=== PATIENT | female | born 1950 | race Caucasian/White ===

== ENCOUNTER → 2016-09-10 | Outpatient (CLI) | payer MEDICARE ==
--- NOTE | 2016-09-10 23:23 | CONS ---
DATE OF CONSULTATION: This is a 66-year-old female patient diagnosed having obstructive sleep apnea back in 2010 under the care of Dr. Packer. Back then the patient was found to have mild ARMIDA with an AHI of 16 and she was given a CPAP machine which is currently set at a pressure of 8 cm of water. The patient had been very compliant on her CPAP machine. She has been using it until the beginning of this year when she quit as the patient had a sinus surgery where a sinus cyst was removed from the right maxillary sinus. Since then she has not seen major difference while being on or off the treatment and she is wondering whether there is a need for ongoing treatment regarding her obstructive sleep apnea. Note that she has not gained any weight and she is still weighing 170 pounds. She still snores according to her . She denies having to stop breathing. No insomnia. No choking, no nocturia. No gasping for air. No restless in the lower extremities. No sleeptalking. No grinding of the teeth. No anxiety or panic attacks. No heartburn. She is a survivor of previous bacterial meningitis back in 2007. She goes to bed around midnight, wakes up between 8 and 10:00 a.m. in the morning takes him a few minutes to fall sleep. No major hypersomnia or sleepiness during the day. Union score is at 2. PAST MEDICAL HISTORY: ARMIDA, Bronchial asthma, meningitis, bacteria, hypertension, GERD and vertigo. Past surgical history includes hysterectomy, appendectomy, cholecystectomy, sinus surgery with resection of sinus polyp and surgery on the septal. SOCIAL HISTORY: The patient is a nonsmoker. No history of alcohol. No history of IV drugs. DRUG ALLERGIES ARE TO CODEINE. The patient has seasonal allergies. Outpatient medication list includes: 1. Prolia injection twice a year. 2. Restasis eye drops. 3. Preservision, 4. Caltrate. 5. Folic acid. 6. B complex. 7. ( ). 8. Hydrochlorothiazide. 9. Slow Iron. 10. Singulair. 11. Aspirin. 12. Meclizine. FAMILY HISTORY: Negative for sleep apnea. REVIEW OF SYSTEMS: Twelve-point review of systems was done. Positive findings were mentioned above in history of present illness. BP is 121/76, pulse 86, respirations 14, temperature 97.6, saturation 95% on room air. Union score is 2. Neck size 14-1/2. BMI is 30.5. GENERAL APPEARANCE: Calm, comfortable. HEENT: Negative for JVD. There is no goiter or neck mass. LUNGS: Clear to auscultation. HEART: Sounds are regular rate and rhythm. Normal S1 and S2. No S3, no murmurs. ABDOMEN: Soft, nontender. No organomegaly. EXTREMITIES: No edema. No cyanosis or clubbing. IMPRESSION: 1. Obstructive sleep apnea, mild at baseline and based on sleep study that was done in 2010. The patient is currently off her treatment. She has a CPAP unit that is set at a pressure of 8 cm of water. However, she has not seen any major difference while being off the treatment. She is in for re-evaluation. 2. Asthma. 3. Meningitis, bacterial 2008. 4. Hypertension. 5. Gastroesophageal reflux disease. 6. Vertigo. PLAN: 1. Keep the patient off treatment for now. 2. Open a home sleep study to re-evaluate the severity of sleep apnea and see if it is worthwhile to restart the treatment. 3. Encourage weight loss. 4. Patient is following a good sleep hygiene measures and she has no major hypersomnia or sleepiness. As such, she is not symptomatic. We will make final decision based on the results of the home sleep study.
== END | disposition home or self-care (01) ==
LOC: SLEEP 15:22
PROVIDERS: ATTEND Internal Medicine
DX: G47.33 Obstructive sleep apnea (adult) (pediatric) (principal); J45.909 Unspecified asthma, uncomplicated; I10 Essential (primary) hypertension; K21.9 Gastro-esophageal reflux disease without esophagitis; Z88.5 Allergy status to narcotic agent; Z79.82 Long term (current) use of aspirin
CPT/HCPCS: 99211

== ENCOUNTER → 2016-09-23 | Outpatient (CLI) | payer MEDICARE ==
[2016-09-23 14:31] LABS: Appearance,Urine Clear (Clear); Bilirubin,Urine Negative (Negative); Glucose,Urine (UA) Negative (Negative); Ketones,Urine Negative (Negative); Leukocyte Esterase,Urine Negative (Negative); Mucus,Urine Rare /hpf; Nitrite,Urine Negative (Negative); Particle Count 1962; Protein,Urine Negative (Negative); RBC,Urine 4 /hpf (0-5); Specific Gravity,Urine 1.013 (1.001-1.035); Squamous Epithelial Cell,Urine <1 /hpf (0-4); UA Billing (MACRO vs. MICRO) MICRO; Urobilinogen,Urine <2.0 mg/dL (<2.0); WBC,Urine 1 /hpf (0-5)
== END ==
LOC: LABWHC1 13:58
PROVIDERS: ATTEND Obstetrics & Gynecology
DX: N32.81 Overactive bladder (principal)
CPT/HCPCS: 81001; 87086

== ENCOUNTER → 2017-01-27 | Outpatient (CLI) | payer MEDICARE ==
[~2017-01-27] MED LIST: DENOSUMAB 60 MG/ML 1 ML SYRINGE SQ ONE
[2017-01-27 14:19] VITALS: BP 132/71; PULSE 72; RESP 16; TEMP 97.7
== END ==
LOC: PROCWHC3 13:50
PROVIDERS: ATTEND Family Medicine
DX: M81.0 Age-related osteoporosis without current pathological fracture (principal)
CPT/HCPCS: 96372; J0897

== ENCOUNTER → 2017-08-04 | Outpatient (CLI) | payer MEDICARE ==
[2017-08-04 13:33] VITALS: BP 118/73; PULSE 71; RESP 16; TEMP 97.7
== END | disposition home or self-care (01) ==
LOC: PROCWHC3 13:02
PROVIDERS: ATTEND Family Medicine
DX: M81.0 Age-related osteoporosis without current pathological fracture (principal)
CPT/HCPCS: 96372; J0897

== ENCOUNTER → 2018-03-09 | Outpatient (CLI) | payer MEDICARE ==
[2018-03-09 11:44] VITALS: BP 119/58; PULSE 75; RESP 16; TEMP 98.1
== END ==
LOC: PROCWHC3 11:30
PROVIDERS: ATTEND Family Medicine
DX: M81.0 Age-related osteoporosis without current pathological fracture (principal)
CPT/HCPCS: 96372; J0897

== ENCOUNTER → 2018-09-09 | Outpatient (CLI) | payer MEDICARE ==
[~2018-09-09] MED LIST changes: +DENOSUMAB 60 MG/ML 1 ML SYRINGE SQ NR; -DENOSUMAB 60 MG/ML 1 ML SYRINGE SQ ONE
[2018-09-09 12:15] VITALS: BP 140/83; PULSE 70; RESP 16; TEMP 98.1
== END ==
LOC: PROCWHC3 12:01
PROVIDERS: ATTEND Family Medicine
DX: M81.0 Age-related osteoporosis without current pathological fracture (principal)
CPT/HCPCS: 96372; J0897

== ENCOUNTER → 2019-03-17 | Outpatient (CLI) | payer MEDICARE ==
[~2019-03-17] MED LIST changes: -DENOSUMAB 60 MG/ML 1 ML SYRINGE SQ NR; +DENOSUMAB 60 MG/ML 1 ML SYRINGE SQ ONE
[2019-03-17 14:58] VITALS: BP 138/69; PULSE 66; RESP 16; TEMP 98.3
== END ==
LOC: PROCWHC3 14:25
PROVIDERS: ATTEND Family Medicine
DX: M81.0 Age-related osteoporosis without current pathological fracture (principal)
CPT/HCPCS: 96372; J0897

== ENCOUNTER → 2019-11-02 | Outpatient (CLI) | payer MEDICARE ==
[~2019-11-02] MED LIST changes: +DENOSUMAB 60 MG/ML 1 ML SYRINGE SQ NR; -DENOSUMAB 60 MG/ML 1 ML SYRINGE SQ ONE
[2019-11-02 14:54] VITALS: BP 128/74; PULSE 79; RESP 16; TEMP 98.2
== END | disposition home or self-care (01) ==
LOC: PROCWHC3 14:26
PROVIDERS: ATTEND Family Medicine
DX: M81.0 Age-related osteoporosis without current pathological fracture (principal)
CPT/HCPCS: 96372; J0897

== ENCOUNTER → 2019-12-30 | Outpatient (CLI) | payer MEDICARE ==
--- NOTE | 2019-12-31 17:24 | MR ---
MRI BRAIN AND IAC WITHOUT AND WITH INTRAVENOUS CONTRAST CLINICAL INDICATION: Acoustic neuroma, vertigo, right hearing loss. COMPARISON: MRA brain 08/04/2010. CT sinus 07/25/2015. TECHNIQUE: Multiplanar multi-sequential MR imaging of the brain and IACs were performed prior to and following the intravenous administration of 7 ml Gadavist. FINDINGS: BRAIN: There are no abnormal extraaxial fluid collections. No midline shift or other mass-effect. No restricted diffusion. The ventricular system and basal cisterns are normal. Constantino-white matter diffe rentiation is maintained. Moderate, nonenhancing, nonspecific T2 FLAIR hyperintense deep, periventric ular, and subcortical white matter foci. Intracranial vascular flow voids are maintained. The midlin e structures and craniocervical junction are normal. No abnormal post contrast enhancement. There is mucosal thickening of the right maxillary sinus. IACs: The seventh and eighth cranial nerve complexes have a normal appearance. No discrete mass. Th e cerebellopontine angles are normal. There is normal fluid signal in the inner ear structures. No a bnormal post contrast enhancement. IMPRESSIONS: 1. No evidence of internal auditory canal or brain acute process or mass. 2. Nonspecific T2 FLAIR hyperintense foci most likely represent sequela of microvascular angiopathy.
== END | disposition home or self-care (01) ==
LOC: RADMRIMAIN 09:07
PROVIDERS: ATTEND Otolaryngology Otology & Neurotology
DX: D33.3 Benign neoplasm of cranial nerves (principal)
CPT/HCPCS: 70553; A9585

== ENCOUNTER → 2020-05-19 | Outpatient (CLI) | payer MEDICARE ==
[~2020-05-19] MED LIST changes: +DENOSUMAB 60 MG/ML 1 ML SYRINGE SQ ONE
[2020-05-19 10:12] VITALS: BP 137/82; PULSE 73; RESP 18; TEMP 98
== END | disposition home or self-care (01) ==
LOC: PROCWHC3 10:04
PROVIDERS: ATTEND Family Medicine
DX: M81.0 Age-related osteoporosis without current pathological fracture (principal)
CPT/HCPCS: 96372; J0897

== ENCOUNTER → 2020-09-13 | Outpatient (CLI) | payer MEDICARE ==
[2020-09-13 18:50] LABS: Basophils # (A) 0.02 X 10*3/uL (0.00-0.10); Basophils % (A) 0.2 %; Eosinophils # (A) 0.14 X 10*3/uL (0.04-0.35); Eosinophils % (A) 1.3 %; HCT 32.5 % (37.2-46.3); HGB 10.7 g/dL (12.0-15.0); Lymphocytes # (A) 2.37 X 10*3/uL (0.90-5.00); Lymphocytes % (A) 22.5 %; MCH 32.7 pg (27.0-32.0); MCHC 32.9 g/dL (32.0-37.0); MCV 99.4 fL (80.0-97.0); Mean Platelet Volume 9.6 fL (9.5-12.2); Monocytes # (A) 0.75 X 10*3/uL (0.20-1.00); Monocytes % (A) 7.1 %; Neutrophils # (A) 7.21 X 10*3/uL (1.80-7.70); Neutrophils % (A) 68.5 %; Platelet Count 315 X 10*3/uL (140-440); RBC 3.27 X 10*6/uL (4.10-5.20); RDW 15.7 % (11.5-14.5); WBC 10.53 X 10*3/uL (4.50-10.00)
[2020-09-13 23:07] LABS: Anion Gap 9.6 mmol/L (4.00-12.00); Carbon Dioxide 26.4 mmol/L (21.6-31.8); Potassium 3.7 mmol/L (3.5-5.5)
== END | disposition home or self-care (01) ==
LOC: LABWHC1 11:13
PROVIDERS: ATTEND Otolaryngology
DX: Z01.818 Encounter for other preprocedural examination (principal); I10 Essential (primary) hypertension
CPT/HCPCS: 36415; 80051; 85025; 93005

== ENCOUNTER → 2020-11-21 | Outpatient (CLI) | payer MEDICARE ==
[~2020-11-21] MED LIST changes: -DENOSUMAB 60 MG/ML 1 ML SYRINGE SQ ONE
[2020-11-21 13:35] VITALS: BP 128/81; PULSE 77; RESP 16; TEMP 98.7
== END | disposition home or self-care (01) ==
LOC: PROCWHC3 13:06
PROVIDERS: ATTEND Family Medicine
DX: M81.0 Age-related osteoporosis without current pathological fracture (principal)
CPT/HCPCS: 96372; J0897

== ENCOUNTER → 2021-05-08 | Outpatient (CLI) | payer MEDICARE ==
--- NOTE | 2021-05-08 14:59 | BD ---
EXAMINATION TYPE: Axial Bone Density DATE OF EXAM: 05/08/2021 COMPARISON: Prior DEXA bone scan report December 31, 2000. CLINICAL HISTORY: Postmenopausal female. Disorder of bone. Height: 5 FT 2 IN Weight: 161 FRAX RISK QUESTIONS: Alcohol (3 or more units per day): NO Family History (Parent hip fracture): NO Glucocorticoids (More than 3mos): POSSIBLY (Ex: prednisone, prednisolone, methylprednisolone, dexamethasone, and hydrocortisone). History of Fracture in Adulthood: NO Secondary Osteoporosis: 1. Type 1 Diabetes: NO 2. Hyperthyroidism: NO 3. Menopause before 45: YES 4. Malnutrition: NO 5. Chronic liver disease: NO Rheumatoid Arthritis: NO Current Tobacco Use: NO RISK FACTORS HISTORY OF: Surgery to Spine/Hip(right/left)/Wrist (right/left): NO Family History of Osteoporosis: YES Active: YES Diet low in dairy products/other sources of calcium: NO Postmenopausal woman: YES Take estrogen and/or progesterone medications: TOOK HRT FOR SEV YEARS AFTER HYST NO LONGER TAKES Lost more than 2 inches in height since high school: NO Frequent falls: NO Poor Health: GOOD Hyperparathyroidism: NO Adrenal Insufficiency: NO MEDICATIONS: Osteoporosis Medications: YES Which medication: PROLIA How Long: HAS BEEN ON SOME TYPE OF BONE DENSITY MED SINCE HER HYST 28 YEARS AGO Additional Medications: PROLIA ,TRIAMTERENE HCTZ,PRESERVISION, RESTASIS, ENALOPRIL, MONTELUKAST,FLONA SE, MECLIZINE HCL Additional History: HISTORY OF ITP EXAM MEASUREMENTS: Bone mineral densitometry was performed using the [employer] System. Bone mineral density as measured about the Lumbar spine is: ----- L1-L4(G/cm2): 1.228 T Score Values are as follows: ----- L2: 0.0 ----- L3: 0.7 ----- L4: 1.5 ----- L1-L4: 0.4 Bone mineral density has: INCREASED 3.0 % since study of: 2000 Bone mineral density about the R hip (g/cm2): 0.858 Bone mineral density about the L hip (g/cm2): 0.849 T Score values are as follows: -----R Neck: -1.3 -----L Neck: -1.4 -----R Total: -0.9 -----L Total: -0.7 Bone mineral density has: DECREASED -2.1 % since study of: 2000 IMPRESSION: Osteopenia (T Score between -2.5 and -1) now present femoral neck level in both hips. There is slightly increased risk of fracture and the patient may be considered for treatment. Re-Screen 2-5 years. NOTE: T-SCORE=SD OF THE YOUNG ADULT MEAN.
== END | disposition home or self-care (01) ==
LOC: RADBDWWP 13:17
PROVIDERS: ATTEND Obstetrics & Gynecology
DX: M85.89 Other specified disorders of bone density and structure, multiple sites (principal); Z78.0 Asymptomatic menopausal state
CPT/HCPCS: 77080

== ENCOUNTER → 2021-06-13 | Outpatient (CLI) | payer MEDICARE ==
[2021-06-13 12:54] VITALS: BP 143/87; PULSE 70; RESP 16; TEMP 98
== END ==
LOC: PROCWHC3 12:29
PROVIDERS: ATTEND Family Medicine
DX: M81.0 Age-related osteoporosis without current pathological fracture (principal); Z88.5 Allergy status to narcotic agent; Z88.8 Allergy status to other drugs, medicaments and biological substances; Z91.09 Other allergy status, other than to drugs and biological substances
CPT/HCPCS: 96372; J0897

== ENCOUNTER → 2021-12-14 | Outpatient (CLI) | payer MEDICARE ==
[2021-12-14 10:44] VITALS: BP 120/75; PULSE 76; RESP 16; TEMP 97.7
== END ==
LOC: PROCWHC3 10:31
PROVIDERS: ATTEND Family Medicine
DX: M81.0 Age-related osteoporosis without current pathological fracture (principal); Z79.51 Long term (current) use of inhaled steroids; Z88.5 Allergy status to narcotic agent; Z91.09 Other allergy status, other than to drugs and biological substances
CPT/HCPCS: 96372; J0897

== ENCOUNTER → 2022-06-17 | Outpatient (CLI) | payer MEDICARE ==
[~2022-06-17] MED LIST changes: -DENOSUMAB 60 MG/ML 1 ML SYRINGE SQ NR; +DENOSUMAB 60 MG/ML 1 ML SYRINGE SQ ONE
[2022-06-17 14:09] VITALS: BP 120/69; PULSE 66; RESP 16; TEMP 98
== END ==
LOC: PROCWHC3 13:49
PROVIDERS: ATTEND Family Medicine
DX: M81.0 Age-related osteoporosis without current pathological fracture (principal); Z88.5 Allergy status to narcotic agent; Z88.8 Allergy status to other drugs, medicaments and biological substances; Z91.09 Other allergy status, other than to drugs and biological substances
CPT/HCPCS: 96372; J0897

== ENCOUNTER → 2023-03-06 | Outpatient (CLI) | payer MEDICARE ==
--- NOTE | 2023-03-07 09:19 | CT ---
EXAMINATION TYPE: CT sinus wo con CT DLP: 500.1 mGycm, Automated exposure control for dose reduction was used. DATE OF EXAM: 03/06/2023 6:31 PM COMPARISON: 07/25/2015.. CLINICAL INDICATION:Female, 72 years old with history of J32.0 CHRONIC MAXILLARY SINUSITIS; , Sinus d rainage x 1 year. TECHNIQUE: Multiple thin axial images were obtained through the paranasal sinuses without the use of IV contrast. Additional coronal and sagittal reformatted images were submitted for evaluation. Contrast used: none Oral contrast used: none FINDINGS: Frontal sinuses: Normally developed and aerated. Frontal Recess: Clear Maxillary Sinuses: Normally developed minimal mucosal thickening on the right. Antrostomy changes anil aterally.. Maxillary Infundibula([facility]): Clear, No Angie cells identified. Ethmoid sinuses: Normally developed and aerated. Ethmoidal notch: Unprotected bilateral anterior ethm oidal arteries. Sphenoid sinuses: Normally developed and aerated. There is sellar sphenoid sinus pneumatization witho ut evidence of dehiscence. No dehiscence of carotid canal. No evidence of optic nerve dehiscence wit hin the sphenoid sinus. No evidence of Onodi cells. Sphenoethmoidal recesses: Clear. Nasal septum: Within normal limits.. Nasal Turbinates: Within normal limits. Mastoid air cells & middle ears: The air cells are clear. The middle ears are grossly unremarkable. Modified Soft tissues & Brain: Partially seen without gross abnormality. Globes are intact. Other: Cribriform plate demonstrates symmetric Keros classification type 2 cribriform plate. No evidence of bony dehiscence of skull base. Lamina papyracea is intact without evidence of remote orbital fracture or orbital prolapse into the e thmoid sinus. IMPRESSION: 1. Post surgical changes with bilateral accessory changes., No significant mucosal sinus disease. 2. The ostiomeatal units, frontonasal and sphenoethmoidal recesses are clear.
== END | disposition home or self-care (01) ==
LOC: RADCTMAIN 18:12
PROVIDERS: ATTEND Otolaryngology
DX: J32.0 Chronic maxillary sinusitis (principal); Z98.890 Other specified postprocedural states
CPT/HCPCS: 70486

== ENCOUNTER → 2023-03-12 | Outpatient (CLI) | payer MEDICARE ==
[~2023-03-12] MED LIST changes: +DENOSUMAB 60 MG/ML 1 ML SYRINGE SQ NR; -DENOSUMAB 60 MG/ML 1 ML SYRINGE SQ ONE
[2023-03-12 14:01] VITALS: BP 151/78; PULSE 87; RESP 16; TEMP 97.4
== END ==
LOC: PROCWHC3 13:25
PROVIDERS: ATTEND Nurse Practitioner
DX: M81.0 Age-related osteoporosis without current pathological fracture (principal)
CPT/HCPCS: 96372; J0897

== ENCOUNTER → 2024-02-17 | Outpatient (CLI) | payer MEDICARE ==
[2024-02-17] MEDS: DENOSUMAB 60 MG/ML 1 ML SYRINGE SQ NR (14:31)
[2024-02-17 14:33] VITALS: BP 126/76; PULSE 85; RESP 16; TEMP 98
== END | disposition home or self-care (01) ==
LOC: PROCWHC3 13:57
PROVIDERS: ATTEND Internal Medicine
DX: M81.0 Age-related osteoporosis without current pathological fracture (principal)
CPT/HCPCS: 96372; J0897

== ENCOUNTER → 2024-04-06 | Outpatient (CLI) | payer MEDICARE ==
--- NOTE | 2024-04-06 13:37 | XR ---
EXAMINATION TYPE: XR chest 2V DATE OF EXAM: 04/06/2024 COMPARISON: NONE CLINICAL INDICATION: Female, 73 years old with history of J20.9 ACUTE BRONCHITIS, UNSPECIFIED; , TECHNIQUE: XR chest 2V views of the chest. FINDINGS: Left lower lobe consolidation. There is sclerotic change of the aorta. Heart size normal and no overt failure. Osseous structures demonstrate hypertrophic and degenerative changes of the spine. IMPRESSION: 1. Left basilar atelectasis versus early infiltrate. [facility], , 04/06/2024 1:35 PM
== END | disposition home or self-care (01) ==
LOC: RADXRMAIN 13:16
PROVIDERS: ATTEND Internal Medicine
DX: J20.9 Acute bronchitis, unspecified (principal); I70.0 Atherosclerosis of aorta
CPT/HCPCS: 71046

== ENCOUNTER 2024-08-24 11:52 | Outpatient (CLI) | payer MEDICARE ==
[2024-08-24 12:16] VITALS: BP 160/88; PULSE 75; RESP 16; TEMP 97.9
[2024-08-24] MEDS: DENOSUMAB 60 MG/ML 1 ML SYRINGE SQ NR (12:16)
== END 2024-08-24 14:08 | disposition home or self-care (01) ==
LOC: PROCWHC3 11:52
PROVIDERS: ATTEND Internal Medicine
DX: M81.0 Age-related osteoporosis without current pathological fracture (principal)
CPT/HCPCS: 96372; J0897